=== PATIENT | female | born 1990 | race Caucasian/White ===

== ENCOUNTER → 2016-07-30 | Outpatient (CLI) | payer OTHER ==
[~2016-07-30] MED LIST: AMBIEN 10MG10 MG PO; LEXAPRO20 MG PO; MACRODANTIN50 MG/CA1 PO; NORCO 325 MG-51 TAB PO; PEN-VEE K500 MG PO; WELLBUTRIN XL150 MG PO
== END ==
LOC: BHSO 08:57
DX: F33.42 Major depressive disorder, recurrent, in full remission (principal)

== ENCOUNTER → 2016-10-29 | Outpatient (CLI) | payer OTHER | LOC: BHSO 08:44 | DX: F33.42 Major depressive disorder, recurrent, in full remission (principal) ==

== ENCOUNTER → 2017-01-26 | Outpatient (CLI) | payer OTHER | LOC: BHSO 07:54 | DX: F33.42 Major depressive disorder, recurrent, in full remission (principal) ==

== ENCOUNTER 2017-01-29 22:42 | Emergency (ER) | payer OTHER ==
[~2017-01-29] VITALS: Ht 170.2 cm; Wt 60.9 kg
[~2017-01-29 22:42] MED LIST changes: -AMBIEN 10MG10 MG PO; -PEN-VEE K500 MG PO
[2017-01-29 22:44] VITALS: BP 112/59; PULSE 74; TEMP 98
[2017-01-29] MEDS ORDERED: AMBIEN 10MG10 MG PO (22:48)
[2017-01-29] MEDS ORDERED: PEN-VEE K500 MG PO (23:11)
[2017-01-29] MEDS ORDERED: NORCO 325 MG-51 TAB PO (23:11)
== END 2017-01-29 23:28 | disposition home or self-care (01) ==
LOC: COL.ER 22:42
DX: K08.89 Other specified disorders of teeth and supporting structures (principal)

== ENCOUNTER → 2017-08-09 | Outpatient (CLI) | payer OTHER ==
[~2017-08-09] MED LIST changes: +AMBIEN 10MG10 MG PO; +PEN-VEE K500 MG PO
== END ==
LOC: BHSO 09:15
DX: F33.41 Major depressive disorder, recurrent, in partial remission (principal)
CPT/HCPCS: G0463

== ENCOUNTER → 2017-11-08 | Outpatient (CLI) | payer OTHER | LOC: BHSO 08:40 | DX: F41.1 Generalized anxiety disorder (principal) | CPT/HCPCS: G0463 ==

== ENCOUNTER → 2018-02-07 | Outpatient (CLI) | payer OTHER | LOC: BHSO 13:19 | DX: F33.41 Major depressive disorder, recurrent, in partial remission (principal) ==

== ENCOUNTER → 2018-05-13 | Outpatient (CLI) | payer OTHER | LOC: BHSO 09:10 | DX: F33.41 Major depressive disorder, recurrent, in partial remission (principal) | CPT/HCPCS: G0463 ==

== ENCOUNTER → 2018-11-09 | Outpatient (CLI) | payer OTHER | LOC: BHSO 08:55 | DX: F33.42 Major depressive disorder, recurrent, in full remission (principal) | CPT/HCPCS: G0463 ==

== ENCOUNTER → 2019-05-10 | Outpatient (CLI) | payer OTHER | LOC: BHSO 14:04 | DX: F41.1 Generalized anxiety disorder (principal) | CPT/HCPCS: G0463 ==

== ENCOUNTER → 2019-07-06 | Outpatient (CLI) | payer OTHER | LOC: BHSO 14:41 | DX: F41.1 Generalized anxiety disorder (principal) | CPT/HCPCS: G0463 ==

== ENCOUNTER → 2019-09-08 | Outpatient (CLI) | payer OTHER | LOC: BHSO 15:22 | DX: F41.1 Generalized anxiety disorder (principal) | CPT/HCPCS: G0463 ==

== ENCOUNTER → 2019-12-01 | Outpatient (CLI) | payer OTHER | LOC: BHSO 11:43 | DX: F33.41 Major depressive disorder, recurrent, in partial remission (principal) | CPT/HCPCS: G0463 ==

== ENCOUNTER → 2020-02-01 | Outpatient (CLI) | payer OTHER | LOC: BHSO 11:19 | DX: F33.42 Major depressive disorder, recurrent, in full remission (principal) | CPT/HCPCS: G0463 ==

== ENCOUNTER → 2020-05-30 | Outpatient (CLI) | payer OTHER | LOC: COL.RAD 12:04 | DX: N81.10 Cystocele, unspecified (principal); Z87.440 Personal history of urinary (tract) infections | CPT/HCPCS: Q9967 ==